=== PATIENT | male | born 1985 | race Caucasian/White ===

== ENCOUNTER 2018-10-25 00:14 | Emergency (ER) | payer OTHER ==
[~2018-10-25] VITALS: Ht 157.5 cm; Wt 70.9 kg
[2018-10-25] MEDS ORDERED: PROCHLORPERAZINE 5 MG/ML, 2ML IVPush ONE (01:00)
[2018-10-25] MEDS ORDERED: DIPHENHYDRAMINE 50 MG/ML, 1ML IVPush ONE (01:00)
[2018-10-25] MEDS ORDERED: SODIUM CHLORIDE FLUSH 10ML SYR IVF ONE (01:00)
[2018-10-25] MEDS ORDERED: SODIUM CHLORIDE 0.9% 1,000ML IVBOLUS ONE (01:00)
[2018-10-25] MEDS ORDERED: KETOROLAC 30 MG/1 ML IVPush ONE (01:00)
[2018-10-25] MEDS ORDERED: PROCHLORPERAZINE 5 MG/ML, 2ML ONE (01:07)
[2018-10-25] MEDS ORDERED: KETOROLAC 30 MG/1 ML ONE (01:07)
[2018-10-25] MEDS ORDERED: DIPHENHYDRAMINE 50 MG/ML, 1ML ONE (01:07)
[2018-10-25 02:09] VITALS: BP 132/70
== END 2018-10-25 02:49 | disposition home or self-care (01) ==
LOC: ED 02:43
DX: R51 Headache (principal); R11.10 Vomiting, unspecified
CPT/HCPCS: 70450; 96361; 96374; 96375; 99284; J0780; J1200; J1885; J7030

== ENCOUNTER 2019-04-17 19:18 | Emergency (ER) | payer OTHER ==
[~2019-04-17] VITALS: Ht 162.6 cm; Wt 71.0 kg
[2019-04-17 19:31] VITALS: BP 141/82
[2019-04-17] MEDS ORDERED: ACETAMINOPHEN 325 MG TABLET PO ONE (21:00)
[2019-04-17] MEDS ORDERED: ACETAMINOPHEN 325 MG TABLET ONE (21:03)
--- NOTE | 2019-04-17 21:15 | NUR ---
PT TO CT.
== END 2019-04-17 21:46 | disposition home or self-care (01) ==
LOC: ED 20:38
DX: S39.012A Strain of muscle, fascia and tendon of lower back, initial encounter (principal); S29.012A Strain of muscle and tendon of back wall of thorax, initial encounter; S70.01XA Contusion of right hip, initial encounter; S19.9XXA Unspecified injury of neck, initial encounter; V49.49XA Driver injured in collision with other motor vehicles in traffic accident, initial encounter; Y93.89 Activity, other specified; Y92.410 Unspecified street and highway as the place of occurrence of the external cause; Y99.8 Other external cause status
CPT/HCPCS: 71045; 72050; 72110; 72125; 99284